=== PATIENT | male | born 1955 | race African-American/Black ===

== ENCOUNTER 2017-11-09 18:26 | Emergency (ER) | payer OTHER | END 2017-11-09 20:36 | disposition short-term general hospital (02) | LOC: ER 18:26 | DX: H43.12 Vitreous hemorrhage, left eye (principal); I10 Essential (primary) hypertension; F10.20 Alcohol dependence, uncomplicated; F12.10 Cannabis abuse, uncomplicated; Z96.653 Presence of artificial knee joint, bilateral | CPT/HCPCS: 99285 ==